=== PATIENT | female | born 1980 | race Hispanic/Latino ===

== ENCOUNTER 2019-05-08 20:15 | Emergency (ER) | payer BC, OTHER ==
[2019-05-08] MEDS ORDERED: KETOROLAC TROMETHAMINE 60 MG/2 ML VIAL ONE (20:58)
[2019-05-08 21:09] LABS: APPEARANCE,URINE Cloudy (CLEAR); BILIRUBIN,URINE Large (NEGATIVE); COLOR,URINE Dark Yellow (YELLOW); GLUCOSE, URINE (UA) Negative (NEGATIVE); KETONES,URINE 40 mg/dL (NEGATIVE); LEUKOCYTE ESTERASE ,URINE Small (NEGATIVE); NITRATE,URINE Positive (NEGATIVE); OCCULT BLOOD,URINE Moderate (NEGATIVE); PH,URINE 5.5 (5.0-8.0); PROTEIN,URINE Trace mg/dL (NEGATIVE)
[2019-05-08 21:12] LABS: HCG,QUAL RESULT NEGATIVE (NEGATIVE)
[2019-05-08 21:16] LABS: BACTERIA,URINE Few /HPF (None Seen)
[2019-05-08 21:17] LABS: SQUAMOUS EPITHELIAL CELL,UR Few /HPF (0-2)
[2019-05-08] MEDS ORDERED: NITROFURANTOIN MONOHYD/M-CRYST 100 MG CAPSULE PO ONE (21:28)
== END 2019-05-08 21:41 | disposition home or self-care (01) ==
LOC: EDH 20:15
DX: N39.0 Urinary tract infection, site not specified (principal); R51 Headache; J45.909 Unspecified asthma, uncomplicated; Z90.89 Acquired absence of other organs
CPT/HCPCS: 81001; 81025; 87088; 96372; 99284; J1885